=== PATIENT | male | born 1995 | race Caucasian/White ===

== ENCOUNTER → 2020-05-18 12:27 | Outpatient (BNVA) | payer OTHER, SELFPAY | PROVIDERS: PCP Nurse Practitioner Family; Visit Provider Nurse Practitioner Family | DX: Z20.828 Contact with and (suspected) exposure to other viral communicable diseases (principal); J06.9 Acute upper respiratory infection, unspecified | CPT/HCPCS: 87635 ==

== ENCOUNTER → 2020-12-21 15:09 | Outpatient (BNVA) | payer OTHER, SELFPAY | PROVIDERS: PCP Nurse Practitioner Family; Visit Provider Emergency Medicine | DX: Z20.822 Contact with and (suspected) exposure to COVID-19 (principal) | CPT/HCPCS: 87635 ==

== ENCOUNTER 2022-07-02 13:37 | Emergency (ER) | payer SELFPAY ==
[2022-07-02 13:51] VITALS: BP 132/84; PULSE 81; RESP 20; TEMP 36.6; O2SAT 98; BMI 19.6
--- NOTE | 2022-07-02 16:01 | ED_ITS ---
Documented by User: CESILIA Shafer 07/02/22 16:36 HPI - Abdominal Pain General: Chief Complaint: Abdominal Pain Stated Complaint: abd pain, indigestion Time Seen by Provider: 07/02/22 17:09 Source: patient Mode of arrival: ambulatory Limitations: no limitations History of Present Illness: Patient is a 27-year-old male who presents to ED today with a complaint of chronic abdominal pain, nausea, vomiting, diarrhea. Patient states something inside me is not working right and nobody seems to be able to figure it out . Patient states he has received countless evaluations for his abdominal pains with blood work and repeat CT scans. Patient seems to think he has had at least 5 or 6 abdomen/pelvis CT scans. He states all scans and blood work come back normal. At one point he was referred for an endoscopy but states COVID hit and this was canceled and never rescheduled. Patient states he has been losing a lot of weight. He states he gets pain to his upper abdomen immediately after eating and states it is not long before he begins having mucousy diarrhea. He has never had bloody stools. He does report some previous episodes of coffee-ground emesis following NSAID use years ago. MD elicited complaint: abdominal pain Pertinent past history: none Associated Symptoms: Reports bloating, GI cramping, diarrhea, excessive flatus, nausea and vomiting; Denies chills, coffee ground emesis, constipation, dysuria, fever(s), hematochezia, hematuria, hematemesis, fecal incontinence and melena Review of Systems Const: Reports: change in appetite and change in weight; Denies: fever(s), chills, body aches, fatigue or malaise ENMT: Denies: throat pain or odynophagia Card: Denies: chest pain Resp: Denies: dyspnea GI: Reports: abdominal pain, nausea, vomiting, early satiety, diarrhea, bloating, GI cramping, excessive flatus and mucus in stool; Denies: hematemesis, coffee ground emesis, constipation, fecal incontinence, rectal pain, rectal swelling, hematochezia, melena or white/light colored stool : Denies: flank pain, dysuria or hematuria Musc: Denies: neck pain, back pain, extremity pain or joint pain Skin/Breast: Denies: rash Neuro: Denies: headache(s), numbness in extremities, weakness in extremities, sensory changes or dizziness [facility] ED PFSH: Medical History No pertinent family history Surgical History No pertinent past surgical history Physical Exam Const: COMMON NORMALS: no acute distress, average body habitus, patient oriented x3, no limitations, healthy appearing, alert and well nourished GENERAL APPEARANCE: cooperative ORIENTATION/CONSCIOUSNESS: Yes awake, Yes oriented to person, Yes oriented to place and Yes oriented to time HENMT: COMMON NORMALS: normocephalic and atraumatic HEAD & SCALP: normal to inspection, normocephalic and atraumatic Resp: COMMON NORMALS: normal respiratory effort and clear to auscultation bilaterally AUSCULTATION: clear to auscultation bilaterally Cardio: COMMON NORMALS: regular rate and regular rhythm RATE: regular rate RHYTHM: regular rhythm GI: COMMON NORMALS: Normal to inspection, nondistended, normoactive bowel sounds present, Soft to palpation, No hepatosplenomegaly present and no masses INSPECTION: Yes normal to inspection AUSCULTATION: Yes normoactive bowel sounds PALPATION: Yes Soft to palpation, Yes Tenderness to palpation present (GI) (mild diffuse pain-non surgical exam), No Guarding due to palpation present (GI), No Rigid due to palpation and Yes No hepatosplenomegaly present : COMMON NORMALS: Yes no CVA tenderness BLADDER/KIDNEY EXAM: Yes no CVA tenderness Back/Pelvis: COMMON NORMALS: no CVA tenderness Extremity: GENERAL: Yes normal exam except as noted Neuro: [place] COMA SCALE: document GCS findings [place] coma scale eye opening: Spontaneous [place] coma scale verbal response: Orientated [place] coma scale motor response: Obey commands [place] coma scale total score: 15 COMMON NORMALS: patient oriented x3 SENSORIUM/ORIENTATION: Yes alert, Yes oriented to person, Yes oriented to place and Yes oriented to time Skin: COMMON NORMALS: no rashes or lesions noted GENERAL SKIN EXAM: no rashes or lesions noted Course Vital Signs: Vital signs: Vital Signs Temperature 97.8 F 07/02/22 13:51 Pulse Rate 81 07/02/22 13:51 Respiratory Rate 20 H 07/02/22 13:51 Blood Pressure 132/84 07/02/22 13:51 Pulse Oximetry 98 02/27/23 13:51 Oxygen Delivery Me thod 07/02/22 13:51 MDM - Abdominal Pain Lab Data 07/02/22 16:37 07/02/22 16:37 Labs/Radiology: Laboratory Results WBC 6.8 10^3/uL (4.0-10.0) 07/02/22 16:37 RBC 5.04 10^6/uL (4.1-5.3) 07/02/22 16:37 Hgb 14.9 g/dL (11.7-16.6) 07/02/22 16:37 Hct 43.7 % (42.0-52.0) 07/02/22 16:37 MCV 86.7 fl (80-94) 07/02/22 16:37 MCH 29.6 pg (28.0-34.0) 07/02/22 16:37 MCHC 34.1 g/dL (30.0-36.0) 07/02/22 16:37 RDW 12.9 % (12.1-15.1) 07/02/22 16:37 Plt Count 287 10^3/cmm (130-400) 07/02/22 16:37 MPV 9.1 fL (7.4-10.4) 07/02/22 16:37 Neut % (Auto) 57.8 % 07/02/22 16:37 Lymph % (Auto) 32.5 % 07/02/22 16:37 Richardson % (Auto) 8.3 % 07/02/22 16:37 Eos % (Auto) 0.9 % 07/02/22 16:37 Baso % (Auto) 0.4 % 07/02/22 16:37 Neut # (Auto) 3.90 10^3/uL (1.8-7.7) 07/02/22 16:37 Lymph # (Auto) 2.2 10^3/uL (0.8-4.8) 07/02/22 16:37 Richardson # (Auto) 0.6 10^3/uL (0.2-0.9) 07/02/22 16:37 Eos # (Auto) 0.1 10^3/uL (0.0-0.8) 07/02/22 16:37 Baso # (Auto) 0.0 10^3/uL (0.0-0.1) 07/02/22 16:37 Nucleated RBC % (auto) 0 % 07/02/22 16:37 Nucleated RBCs # 0.0 /100WBC 07/02/22 16:37 Sodium 136 mmol/L (136-145) 07/02/22 16:37 Potassium 4.3 mmol/L (3.5-5.1) 07/02/22 16:37 Chloride 101 mmol/L (98-107) 07/02/22 16:37 Carbon Dioxide 23 mmol/L (22-29) 07/02/22 16:37 Anion Gap 16.3 (5-19) 07/02/22 16:37 BUN 10 mg/dL (6-20) 07/02/22 16:37 Creatinine 0.7 mg/dL (0.7-1.2) 07/02/22 16:37 GFR Calculation 136.3 mL/min (90-130) H 07/02/22 16:37 Glucose 93 mg/dL (65-115) 07/02/22 16:37 Calculated Osmolality 281 mOsm/kg (285-295) L 07/02/22 16:37 Calcium 9.4 mg/dL (8.5-10.5) 07/02/22 16:37 Total Bilirubin 0.5 mg/dL (0.15-1.2) 07/02/22 16:37 AST 20 U/L (0-40) 07/02/22 16:37 ALT 14 U/L (0-41) 07/02/22 16:37 Alkaline Phosphatase 73 U/L (40-130) 07/02/22 16:37 Total Protein 7.1 g/dL (6.6-8.7) 07/02/22 16:37 Albumin 4.6 g/dL (3.5-5.2) 07/02/22 16:37 Globulin 2.5 g/dL (1.3-4.6) 07/02/22 16:37 Lipase 23 U/L (13-60) 07/02/22 16:37 Discharge Plan Discharge Patient Disposition: Home Clinical Impression: Nausea in adult patient Condition: Stable Prescriptions: New Reglan 10 mg tablet 10 mg PO Q6H PRN (Reason: nausea and vomiting) Qty: 20 0RF Discharge Orders: Discharge ED (Routine); Ordered 07/02/22 Ordered By: Jairo Donald Referrals: Eunice Tucker FNP [Primary Care Provider] - Discharge Diet: Advance as tolerated Discharge Activity: Resume usual activity Activity Restrictions/Additional Instructions: Follow-up with medical provider as directed. Case management should be contacting you in the next several days to set up an appointment with general surgeon to discuss doing a possible GI scope. Take medications as prescribed. Return to the ER or your medical provider if condition worsens. Please read and understand discharge instructions. Thank you for choosing [facility] for your healthcare needs today. Please realize this is an emergency room and that we are providing you with a medical screening exam and this may not be complete and all inclusive of all the testing and or work up that you may need to determine your ailment or severity of your illness. It is very important that you follow up as instructed or that you return to the Emergency Department should you have concerns or if your condition changes or worsens in any way. Sign Out Sign Out Data: Patient Sign Out occurred on 07/02/22 at 17:09. Patient's care was discussed, and care was transferred from to CESILIA Llamas. Coding Level of Care Code ED Commercial Real Estate Agent for [employer]g Fwd Documented by User: CESILIA Llamas 07/02/22 22:59 HPI - Abdominal Pain General: Chief Complaint: Abdominal Pain Stated Complaint: abd pain, indigestion Time Seen by Provider: 07/02/22 17:09 [facility] ED PFSH: Medical History No pertinent family history Surgical History No pertinent past surgical history Physical Exam Neuro: CHE[place] COMA SCALE: document GCS findings [place] coma scale total score: 15 Course Vital Signs: Vital signs: Vital Signs Temperature 97.8 F 07/02/22 13:51 Pulse Rate 81 07/02/22 13:51 Respiratory Rate 20 H 07/02/22 13:51 Blood Pressure 132/84 07/02/22 13:51 Pulse Oximetry 98 07/02/22 13:51 Oxygen Delivery Me thod 07/02/22 13:51 MDM - Abdominal Pain Medical Decision Making Patient is a 27-year-old male who presents to ED today with a complaint of chronic abdominal pain, nausea, vomiting, diarrhea. Patient states something inside me is not working right and nobody seems to be able to figure it out . Patient states he has received countless evaluations for his abdominal pains with blood work and repeat CT scans. Patient seems to think he has had at least 5 or 6 abdomen/pelvis CT scans. He states all scans and blood work come back normal. Vitals are stable. Exam is benign patient appears nontoxic in no acute distress or pain. Labs are all unremarkable. Referral to bottle caser was made for patient to be set up for consult for endoscopy/colonoscopy. He was diagnosed with nausea and discharged home with a prescription for Reglan. Return to ED precautions given. Patient understood agree with plan. Lab Data I reviewed the patient's lab results. 07/02/22 16:37 07/02/22 16:37 Labs/Radiology: Laboratory Results WBC 6.8 10^3/uL (4.0-10.0) 07/02/22 16:37 RBC 5.04 10^6/uL (4.1-5.3) 07/02/22 16:37 Hgb 14.9 g/dL (11.7-16.6) 07/02/22 16:37 Hct 43.7 % (42.0-52.0) 07/02/22 16:37 MCV 86.7 fl (80-94) 07/02/22 16:37 MCH 29.6 pg (28.0-34.0) 07/02/22 16:37 MCHC 34.1 g/dL (30.0-36.0) 07/02/22 16:37 RDW 12.9 % (12.1-15.1) 07/02/22 16:37 Plt Count 287 10^3/cmm (130-400) 07/02/22 16:37 MPV 9.1 fL (7.4-10.4) 07/02/22 16:37 Neut % (Auto) 57.8 % 07/02/22 16:37 Lymph % (Auto) 32.5 % 07/02/22 16:37 Richardson % (Auto) 8.3 % 07/02/22 16:37 Eos % (Auto) 0.9 % 07/02/22 16:37 Baso % (Auto) 0.4 % 07/02/22 16:37 Neut # (Auto) 3.90 10^3/uL (1.8-7.7) 07/02/22 16:37 Lymph # (Auto) 2.2 10^3/uL (0.8-4.8) 07/02/22 16:37 Richardson # (Auto) 0.6 10^3/uL (0.2-0.9) 07/02/22 16:37 Eos # (Auto) 0.1 10^3/uL (0.0-0.8) 07/02/22 16:37 Baso # (Auto) 0.0 10^3/uL (0.0-0.1) 07/02/22 16:37 Nucleated RBC % (auto) 0 % 07/02/22 16:37 Nucleated RBCs # 0.0 /100WBC 07/02/22 16:37 Sodium 136 mmol/L (136-145) 07/02/22 16:37 Potassium 4.3 mmol/L (3.5-5.1) 07/02/22 16:37 Chloride 101 mmol/L (98-107) 07/02/22 16:37 Carbon Dioxide 23 mmol/L (22-29) 07/02/22 16:37 Anion Gap 16.3 (5-19) 07/02/22 16:37 BUN 10 mg/dL (6-20) 07/02/22 16:37 Creatinine 0.7 mg/dL (0.7-1.2) 07/02/22 16:37 GFR Calculation 136.3 mL/min (90-130) H 07/02/22 16:37 Glucose 93 mg/dL (65-115) 07/02/22 16:37 Calculated Osmolality 281 mOsm/kg (285-295) L 07/02/22 16:37 Calcium 9.4 mg/dL (8.5-10.5) 07/02/22 16:37 Total Bilirubin 0.5 mg/dL (0.15-1.2) 07/02/22 16:37 AST 20 U/L (0-40) 07/02/22 16:37 ALT 14 U/L (0-41) 07/02/22 16:37 Alkaline Phosphatase 73 U/L (40-130) 07/02/22 16:37 Total Protein 7.1 g/dL (6.6-8.7) 07/02/22 16:37 Albumin 4.6 g/dL (3.5-5.2) 07/02/22 16:37 Globulin 2.5 g/dL (1.3-4.6) 07/02/22 16:37 Lipase 23 U/L (13-60) 07/02/22 16:37 Discharge Plan Discharge Patient Disposition: Home Clinical Impression: Nausea in adult patient Condition: Stable Prescriptions: New Reglan 10 mg tablet 10 mg PO Q6H PRN (Reason: nausea and vomiting) Qty: 20 0RF Discharge Orders: Discharge ED (Routine); Ordered 07/02/22 Ordered By: Jairo Donald Referrals: Eunice Tucker FNP [Primary Care Provider] - Discharge Diet: Advance as tolerated Discharge Activity: Resume usual activity Activity Restrictions/Additional Instructions: Follow-up with medical provider as directed. Case management should be contacting you in the next several days to set up an appointment with general surgeon to discuss doing a possible GI scope. Take medications as prescribed. Return to the ER or your medical provider if condition worsens. Please read and understand discharge instructions. Thank you for choosing [facility] for your healthcare needs today. Please realize this is an emergency room and that we are providing you with a medical screening exam and this may not be complete and all inclusive of all the testing and or work up that you may need to determine your ailment or severity of your illness. It is very important that you follow up as instructed or that you return to the Emergency Department should you have concerns or if your condition changes or worsens in any way. Sign Out Sign Out Data: Patient Sign Out occurred on 07/02/22 at 17:09. Patient's care was discussed, and care was transferred from to CESILIA Llamas. Coding Level of Care Code ED Commercial Real Estate Agent for Alan Joiner
[2022-07-02 16:53] LABS: Basophils % 0.4 %; Eosinophils # 0.1 10^3/uL (0.0-0.8); Eosinophils % 0.9 %; Hematocrit 43.7 % (42.0-52.0); Hemoglobin 14.9 g/dL (11.7-16.6); Lymphocytes # 2.2 10^3/uL (0.8-4.8); Lymphocytes % 32.5 %; Mean Corpuscular HGB Conc 34.1 g/dL (30.0-36.0); Mean Corpuscular Hemoglobin 29.6 pg (28.0-34.0); Mean Corpuscular Volume 86.7 fl (80-94); Mean Platelet Volume 9.1 fL (7.4-10.4); Monocytes # 0.6 10^3/uL (0.2-0.9); Monocytes % 8.3 %; Neutrophils % 57.8 %; Nucleated Red Blood Cells % 0 %; Platelet Count 287 10^3/cmm (130-400); Red Blood Count 5.04 10^6/uL (4.1-5.3); Red Cell Distribution Width 12.9 % (12.1-15.1); White Blood Count 6.8 10^3/uL (4.0-10.0)
[2022-07-02 17:03] LABS: Alanine Aminotransferase 14 U/L (0-41); Albumin Level 4.6 g/dL (3.5-5.2); Alkaline Phosphatase 73 U/L (40-130); Blood Urea Nitrogen 10 mg/dL (6-20); Calcium 9.4 mg/dL (8.5-10.5); Carbon Dioxide 23 mmol/L (22-29); Chloride 101 mmol/L (98-107); Globulin 2.5 g/dL (1.3-4.6); Glomerular Filtration Rate 136.3 mL/min (90-130); Glucose 93 mg/dL (65-115); Lipase 23 U/L (13-60); Osmolality Calculated 281 mOsm/kg (285-295); Sodium 136 mmol/L (136-145); Total Bilirubin 0.5 mg/dL (0.15-1.2); Total Protein 7.1 g/dL (6.6-8.7)
[2022-07-02 17:05] LABS: Anion Gap 16.3 (5-19); Aspartate Amino Transferase 20 U/L (0-40); Potassium 4.3 mmol/L (3.5-5.1)
--- NOTE | 2022-07-03 08:24 | DCPLANNER ---
Addendum entered by Alina De Jesus 08/24/22 08:49: This appointment was cancelled Addendum entered by Alina De Jesus 07/03/22 13:54: Patient has a follow up appointment scheduled for Sunday, July 31, 2022 at 1:20 with at general surgery. Clinic will call patient with appointment information. Original Note: gravity manager had message to schedule a follow up appointment for patient with general surgery. gravity manager sent patients information to the front office staff at general surgery. Patients information will be printed and reviewed. Clinic will call patient with appointment information.
== END 2022-07-02 17:42 | disposition home or self-care (01) ==
PROVIDERS: Physician Assistant; Emergency Provider Physician Assistant; PCP Nurse Practitioner Family
DX: R11.0 Nausea (principal)
CPT/HCPCS: 36415; 80053; 83690; 85025; 99283